=== PATIENT | female | born 1990 ===

== ENCOUNTER 2021-02-20 08:04 | Inpatient (IN) ==
[2021-02-20] MEDS ORDERED: Buffered Lidocaine 1% SYRIN 1 ml INTRADERM ONE ×2 (08:33→10:14)
[2021-02-20 09:44] LABS: Urine Benzodiazepine Screen None Detected (None Detect); Urine Cannabinoids Screen None Detected (None Detect); Urine Opiates Screen None Detected (None Detect)
[2021-02-20] MEDS ORDERED: Lactated Ringers 1000 ml BAG 1,000 ML IV ONE ×2 (10:14→21:00)
[2021-02-20] MEDS ORDERED: Lactated Ringers 1000 ml BAG 1,000 ML IV SCH ×3 (11:00→23:00)
[2021-02-20 11:27] LABS: ABS Basophils 0.1 10^3/ul (0-0.2); ABS Eosinophils 0.3 10^3/ul (0-0.6); ABS Lymphocytes 1.7 10^3/ul (1.0-4.8); ABS Monocytes 0.6 10^3/ul (0-0.8); ABS Neutrophils 9.5 10^3/ul (1.5-7.7); Eosinophil % 2.8 %; Hematocrit 35 % (35-47); Hemoglobin 11.6 g/dL (12.0-16.0); Lymphocyte % 13.8 %; Mean Corpuscular HGB Conc 33 g/dL (31-36); Mean Corpuscular Hemoglobin 28 pg (27-31); Mean Corpuscular Volume 86 fL (80-97); Mean Platelet Volume 9.7 fL (7.4-10.4); Platelet Count 230 10^3/uL (150-450); Red Blood Count 4.09 10^6 /uL (3.70-4.87); Red Cell Distribution Width 15 % (10-15); White Blood Count 12.3 10^3/uL (3.5-10.8)
[2021-02-20] MEDS ORDERED: Oxytocin in LR 20 UNITS/1,000 ML BAG IVPB SCH ×3 (16:00→23:00)
[2021-02-20] MEDS ORDERED: OBEPIDURAL 250 ML EPIDURAL ONE (18:53)
[2021-02-20] MEDS ORDERED: fentaNYL 100 mcg/2 ml 50 MCG/ML VIAL ONE (19:00)
[2021-02-20] MEDS ORDERED: Sodium Citrate/Citric Acid LIQ 15 ML UDC PO PRN (21:00)
[2021-02-20] MEDS ORDERED: OBEPIDURAL 250 ML EPIDURAL SCH (21:00)
[2021-02-20] MEDS ORDERED: Phenylephrine 40 mcg/mL 10mL (400mcg) SYRINGE IV PUSH PRN ×2 (21:00)
[2021-02-20] MEDS ORDERED: EPHEDrine (Pressors) 50 MG/ML VIAL IV PUSH PRN ×2 (21:00)
[2021-02-20] MEDS ORDERED: Glycerin ADULT 2.4 gm SUPP PR PRN (22:01)
[2021-02-20] MEDS ORDERED: Witch Hazel PAD JAR TOPICAL PRN (22:01)
[2021-02-20] MEDS ORDERED: Dibucaine 1% OINT 28.35 GM TUBE PR PRN (22:01)
[2021-02-21] MEDS ORDERED: Lidocaine 1% VIAL 10 MG/ML VIAL ONE (00:17)
[2021-02-21 06:53] LABS: ABS Basophils 0.1 10^3/ul (0-0.2); ABS Eosinophils 0.1 10^3/ul (0-0.6); ABS Monocytes 0.7 10^3/ul (0-0.8); ABS Neutrophils 12.7 10^3/ul (1.5-7.7); Eosinophil % 0.6 %; Hematocrit 31 % (35-47); Hemoglobin 10.3 g/dL (12.0-16.0); Lymphocyte % 12.7 %; Mean Corpuscular HGB Conc 33 g/dL (31-36); Mean Corpuscular Hemoglobin 29 pg (27-31); Mean Corpuscular Volume 87 fL (80-97); Mean Platelet Volume 9.6 fL (7.4-10.4); Platelet Count 226 10^3/uL (150-450); Red Blood Count 3.59 10^6 /uL (3.70-4.87); Red Cell Distribution Width 15 % (10-15); White Blood Count 15.6 10^3/uL (3.5-10.8)
[2021-02-22 08:22] VITALS: BP 131/79
== END 2021-02-22 12:28 | disposition home or self-care (01) | DRG 560 ==
LOC: MCHOBOUT 08:04 → MCHOB 10:05
PROVIDERS: ADMIT Obstetrics & Gynecology; ATTEND Obstetrics & Gynecology